=== PATIENT | female | born 1940 | race Caucasian/White ===

== ENCOUNTER 2017-07-21 16:41 | Emergency (ER) | payer OTHER ==
[~2017-07-21] VITALS: Ht 167.6 cm; Wt 97.8 kg
[2017-07-21 17:17] LABS: HEMATOCRIT 46.1 % (36.0-46.0); HEMOGLOBIN 15.6 G/DL (11.9-15.5); MCHC 33.8 G/DL (30.0-36.0); MCV 88.7 FL (83-99); PLATELET COUNT 321 K/uL (156-360); RBC DIS.WIDTH-SD 42.2 % (39-53); WHITE BLOOD COUNT 8.1 K/uL (4.1-10.2)
[2017-07-21 17:26] LABS: ALBUMIN 4.5 g/dL (3.2-4.8); CHLORIDE 102 mEq/L (99-109); POTASSIUM 3.8 mEq/L (3.7-5.4); SODIUM 140 mEq/L (136-147)
[2017-07-21 17:28] LABS: GLUCOSE 106 mg/dL (70-99); TOTAL PROTEIN 7.8 g/dL (6.4-8.3)
[2017-07-21 17:30] LABS: TOTAL BILIRUBIN 0.4 mg/dL (0.0-1.0)
[2017-07-21 17:32] LABS: ALKALINE PHOSPHATASE 75 IU/L (3-129); CREATININE 0.9 mg/dL (0.6-1.3); GFR ESTIMATE (CALCULATED) > 59 mL/min/
[2017-07-21 17:33] LABS: UREA NITROGEN (BUN) 14 mg/dL (9-23)
[2017-07-21 17:34] LABS: AST (GOT) 23 IU/L (2-34)
[2017-07-21 17:35] LABS: ALT (GPT) 12 IU/L (3-49)
[2017-07-21 19:38] LABS: LIPASE 21 U/L (1.0-51.0)
[2017-07-21 19:41] LABS: MAGNESIUM 2.5 mg/dL (1.3-2.7)
[2017-07-21 20:28] LABS: BASOPHIL (%) 0.5 % (0-1); EOSINOPHIL (%) 0.6 % (0-5); EOSINOPHIL COUNT 0.1 K/uL (0-0.3); IMMATURE GRANULOCYTE (%) 0.1 % (0.0-0.7); LYMPHOCYTE (%) 28.3 % (15-42); LYMPHOCYTE COUNT 2.3 K/uL (1.0-2.8); MONOCYTE (%) 3.8 % (3-12); MONOCYTE COUNT 0.3 K/uL (0-0.8); NEUTROPHIL (%) 66.7 % (45-76); NEUTROPHIL COUNT 5.3 K/uL (1.8-6.4)
[2017-07-21 22:11] LABS: APPEARANCE CLEAR ((CLEAR)); BILIRUBIN NEGATIVE; BLOOD SMALL; COLOR YELLOW ((YELLOW)); GLUCOSE (STRIP) NEGATIVE; KETONES 5; LEUKOCYTES SMALL; NITRITE NEGATIVE; PROTEIN (STRIP) NEGATIVE; SPECIFIC GRAVITY 1.019 (1.000-1.030); UROBILINOGEN 0.2 MG/DL (0.2-1.0)
[2017-07-21 22:19] LABS: BACTERIA RARE /HPF; EPITHELIAL CELLS 1+ /HPF; MUCUS TRACE /LPF; RED BLOOD CELLS 0-5 /HPF (0-5); UCUL ADDED? YES
[2017-07-22] MEDS ORDERED: KEFLEX500 MG PO (01:28)
[2017-07-22] MEDS ORDERED: ULTRACET1 TABLET PO (01:28)
[2017-07-22] MEDS ORDERED: ZOFRAN ODT8 MG PO (01:28)
[2017-07-22] MEDS ORDERED: CARAFATE100 MG/ML PO (01:31)
[2017-07-22 01:56] VITALS: BP 141/69
== END 2017-07-22 01:57 | disposition home or self-care (01) ==
LOC: EME 16:41
DX: R11.2 Nausea with vomiting, unspecified (principal); N39.0 Urinary tract infection, site not specified; T40.605A Adverse effect of unspecified narcotics, initial encounter; R91.1 Solitary pulmonary nodule; M79.89 Other specified soft tissue disorders; I10 Essential (primary) hypertension; Z87.442 Personal history of urinary calculi; Z88.2 Allergy status to sulfonamides; Z87.891 Personal history of nicotine dependence
CPT/HCPCS: 74176; 80053; 81003; 83605; 83690; 83735; 85025; 85027; 87040; 87086; 93005; 93971; 99281; 99285; J0696; J1200; J1885; J2405; J2765; J7030